=== PATIENT | female | born 1980 | race Caucasian/White ===

== ENCOUNTER 2023-07-24 07:00 | Day surgery (SDC) | payer MEDICAID ==
[~2023-07-24 07:00] MED LIST: Bupivacaine 0.5% 50 ML MDV ONE; Nozin Nasal Sanitizer NASBOTH ONE
[2023-07-24 07:28] LABS: HEMATOCRIT 40.9 % (34.3-46.0); HEMOGLOBIN 13.9 g/dL (11.2-15.5); MEAN CORPUSCULAR HEMOGLOBIN 28.4 pg (31.6-35.5); MEAN CORPUSCULAR VOLUME 83.6 fL (81.4-99.0); RED BLOOD CELL COUNT 4.89 M/uL (3.77-5.24); WHITE BLOOD CELL COUNT,WBC 8.9 K/uL (3.2-11.0)
[2023-07-24] MEDS ORDERED: Dexamethasone 4 MG/ML SDV ONE (07:38)
[2023-07-24] MEDS ORDERED: Rocuronium 50 MG/5 ML Vial ONE (07:38)
[2023-07-24] MEDS ORDERED: Neostigmine Methylsulfate 10 MG/10 ML MDV ONE (07:38)
[2023-07-24] MEDS ORDERED: Propofol 200 MG/20 ML SDV ONE (07:38)
[2023-07-24] MEDS ORDERED: Ondansetron 4 MG/2 ML SDV ONE (07:38)
[2023-07-24] MEDS ORDERED: Succinylcholine 200 MG/10 ML MDV ONE (07:38)
[2023-07-24] MEDS ORDERED: Glycopyrrolate 0.2 MG/ML 5 ML MDV ONE (07:38)
[2023-07-24] MEDS ORDERED: fentaNYL 250 MCG/5 ML SDV ONE (07:40)
[2023-07-24] MEDS ORDERED: Lactated Ringers 1,000 ML IV SCH (08:00)
[2023-07-24] MEDS ORDERED: ceFAZolin 2 GM in Premix Bag 1 BAG IV ONE (08:00)
[2023-07-24 08:16] LABS: ALANINE AMINOTRANSFERASE,ALT 32 U/L (12-78); ALBUMIN 3.6 g/dL (3.4-5.0); ALKALINE PHOSPHATASE 60 U/L (46-116); ANION GAP 9.2 mmol/L (5.0-14.0); ASPARTATE AMNIOTRANSFERASE,AST 15 U/L (15-37); BILIRUBIN TOTAL 0.3 mg/dL (0.2-1.0); BLOOD UREA NITROGEN,BUN 11 mg/dL (7-18); CALCIUM 8.5 mg/dL (8.5-10.1); CARBON DIOXIDE,CO2 29 mmol/L (21-32); CHLORIDE,CL 103 mmol/L (100-108); CREATININE 0.8 mg/dL (0.6-1.0); EST CRCL DRUG DOSING (CG) 81.59 mL/min; ESTIMATED GFR 94 mL/min (>60); GLUCOSE RANDOM 108 mg/dL (74-106); POTASSIUM,K 4.2 mmol/L (3.6-5.2); PROTEIN TOTAL,TP 7.3 g/dL (6.4-8.2); SODIUM,NA 137 mmol/L (140-148)
[2023-07-24] MEDS ORDERED: Acetaminophen 500 MG Tab PO ONE (12:02)
[2023-07-24] MEDS ORDERED: Benzocaine/Cetylpyridinium/Menthol Lozenge MUCMEM ONE (12:18)
== END 2023-07-24 13:15 | disposition home or self-care (01) ==
LOC: JP.SDS 07:00
PROVIDERS: ATTEND Specialist
DX: S83.242A Other tear of medial meniscus, current injury, left knee, initial encounter (principal); M25.562 Pain in left knee; X58.XXXA Exposure to other specified factors, initial encounter
CPT/HCPCS: 36415; 80053; 84703; 85027; 93005; 93010; A9270-GY; J0330; J0690; J1100; J2405; J2704; J2710; J3010; J3490; J7120